=== PATIENT | female | born 1940 | race African-American/Black ===

== ENCOUNTER 2017-02-06 10:26 | Outpatient (CLI) | payer MEDICARE ==
--- NOTE | 2017-02-06 13:29 | Mammography Report ---
BONE DENSITY STUDY: DEFINITIONS: BMD = Bone Mineral Density T-score = BMD related to mean peak bone mass of young adult (mean expressed in Standard Deviation) Z-score = Age matched BMD expressed in SD World Health Organization (WHO) Diagnostic Criteria Normal T-score > -1 SD Osteopenia T-score between -1 and -2.4 SD Osteoporosis T-score -2.5 SD or below FINDINGS: The weighted average BMD of lumbar spine L1-L4 is 0.826 with a T-score of -2.0. The weighted average BMD of hip is 0.767 with a T-score of -1.4. IMPRESSION: The patient's T-score is diagnostic for osteopenia and average relative risk for fracture. NOTE: BMD is not the only risk factor for fracture; also consider factors such as the patient's age, risk of falling, previous osteoporotic fracture, family history of osteoporotic fractures, current smoker, and low body weight. Umanzor's triangle is a region of interest in femur, predominantly of trabecular bone. It is not a true anatomic site, and [facility] does not recommend its use clinically.
--- NOTE | 2017-02-07 09:15 | Mammography Report ---
Bilateral mammogram: Compared to 09/15/14. CAD study utilized. Findings: Predominance of adipose tissue bilaterally. No mass or microcalcification. Benign axillary nodes. Impression: Benign findings. Annual followup recommended. BI-RADS CATEGORY: 2 = Benign ACR BI-RADS MAMMOGRAPHIC CODES: 0 = Needs additional imaging evaluation; 1 = Negative; 2 = Benign; 3 = Probably benign; 4 = Suspicious; 5 = Malignant; 6 = Known biopsy-proven malignancy COMMENT: 1. Dense breast tissue, i.e., adenosis, fibrocystic changes, etc., may obscure an underlying neoplasm. 2. Approximately 10% of cancers are not detected with mammography. 3. A negative mammography report should not delay biopsy if a clinically suspicious mass is present. COMMENT: Patient follow-up letters are generated in [employer].
== END 2017-02-06 10:27 | disposition home or self-care (01) ==
LOC: MAMMO 10:26
PROVIDERS: ATTEND Family Medicine
DX: Z12.31 Encounter for screening mammogram for malignant neoplasm of breast (principal); M81.0 Age-related osteoporosis without current pathological fracture; M85.88 Other specified disorders of bone density and structure, other site
CPT/HCPCS: 77080; G0202; 77067

== ENCOUNTER 2017-07-24 07:49 | Outpatient (CLI) | payer MEDICARE ==
--- NOTE | 2017-07-24 09:13 | Ultrasound Report ---
RIGHT UPPER QUADRANT ULTRASOUND: HISTORY: Upper abdominal pain. Technique: Transabdominal ultrasound imaging with Doppler interrogation. FINDINGS: The gallbladder is sonolucent with no evidence of stones, polyps or wall thickening. There is suggestion of trace gallbladder sludge. The CBD measures 3 mm. Images of the liver parenchyma, pancreas, right kidney and aorta are within normal limits. No perihepatic ascites. IMPRESSION: Trace sludge in the gallbladder, otherwise, unremarkable exam.
== END 2017-07-24 07:50 | disposition home or self-care (01) ==
LOC: US 07:49
PROVIDERS: ATTEND Family Medicine
DX: K82.8 Other specified diseases of gallbladder (principal); H02.64 Xanthelasma of left upper eyelid
CPT/HCPCS: 76705

== ENCOUNTER 2018-02-20 06:55 | Outpatient (CLI) | payer MEDICARE ==
--- NOTE | 2018-02-20 08:23 | Ultrasound Report ---
ULTRASOUND ABDOMEN COMPLETE: TECHNIQUE: Transabdominal ultrasound with color Doppler interrogation. HISTORY: Abdominal pain. COMPARISON: Right upper quadrant ultrasound dated 04/29/14. FINDINGS: LIVER: Normal. No enlargement, surface nodularity or focal lesion is identified BILIARY SYSTEM: Normal. PANCREAS: Normal. SPLEEN: Normal. KIDNEYS: Both kidneys are normal size, contour and position. There is slight increased renal parenchymal echotexture which is a new finding since 2013 consistent with nonspecific renal parenchymal disease. There is no evidence for focal renal lesion, nephrolithiasis or hydronephrosis. AORTA/IVC: Normal. ASCITES: None. IMPRESSION: Slightly echogenic kidneys consistent with nonspecific renal parenchymal disease. This is a new finding since 2014. The remainder of the exam is within normal limits.
== END 2018-02-20 06:56 | disposition home or self-care (01) ==
LOC: US 06:55
PROVIDERS: ATTEND Family Medicine
DX: K75.9 Inflammatory liver disease, unspecified (principal); R10.30 Lower abdominal pain, unspecified
CPT/HCPCS: 76700